=== PATIENT | female | born 2000 | race Caucasian/White ===

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

== ENCOUNTER 2024-03-26 19:17 | Emergency (ER) | payer BC, OTHER ==
[~2024-03-26] VITALS: Ht 157.5 cm; Wt 56.7 kg
[2024-03-26] MEDS ORDERED: AMOX-430 PO (20:58)
[2024-03-26] MEDS ORDERED: FLUT16SP16 BNOSTRILS (20:58)
[2024-03-26] MEDS ORDERED: BENZ-13 PO (20:59)
[2024-03-26 21:06] VITALS: TEMP 97.8
[2024-03-26 21:34] LABS: BASOPHILS % (AUTO) 0.5 % (0.0-2.0); EOSINOPHILS # (AUTO) 0.1 K/uL (0.0-0.7); HEMATOCRIT 42 % (33-45); HEMOGLOBIN 14.2 g/dL (11.5-14.8); LYMPHOCYTES # (AUTO) 1.7 K/uL (0.8-4.8); LYMPHOCYTES % (AUTO) 34.5 % (20.0-44.0); MEAN CORPUSCULAR HEMOGLOBIN 29 PG (26.0-33.0); MEAN CORPUSCULAR HGB CONC 34 g/dl (31.0-36.0); MEAN CORPUSCULAR VOLUME 87 fL (82-100); MONOCYTES # (AUTO) 0.7 K/uL (0.1-1.30); MONOCYTES % (AUTO) 13.3 % (2.0-12.0); NEUTROPHILS # (AUTO) 2.4 K/uL (1.8-8.9); NEUTROPHILS % (AUTO) 48.7 % (43.0-81.0); PLATELET COUNT (AUTO) 301 K/uL (150-450); RED BLOOD CELL COUNT(AUTO) 4.84 MIL/uL (4.0-5.2); RED CELL DISTRIBUTION WIDTH 13.3 % (11.5-15.0); WHITE BLOOD COUNT (AUTO) 4.9 K/uL (4.3-11.0)
[2024-03-26 21:52] LABS: CREATININE 0.7 mg/dL (0.6-1.3); POTASSIUM 4.3 mmol/L (3.5-5.1)
[2024-03-26 21:54] LABS: D-DIMER < 0.19 mg/L(FEU (0.17-0.50); INR 1.07 (0.91-1.10); PARTIAL THROMBOPLASTIN TIME 28.7 SEC (24.3-34.3); PROTHROMBIN TIME 11.3 SECS (9.2-11.1)
[2024-03-26] MEDS ORDERED: KETOROLAC TROMETHAMINE INJ 30 MG/ML VIAL ONE (21:58)
[2024-03-26] MEDS ORDERED: ACETAMINOPHEN 325 MG TABLET ONE (21:58)
[2024-03-26] MEDS: KETOROLAC TROMETHAMINE INJ 30 MG/ML VIAL IM ONE (22:04)
[2024-03-26] MEDS: ACETAMINOPHEN 325 MG TABLET PO ONE (22:05)
[2024-03-27 01:15] VITALS: BP 143/79; O2SAT 98
== END 2024-03-26 23:00 | disposition home or self-care (01) ==
LOC: ER 19:27
DX: R04.2 Hemoptysis (principal); J01.90 Acute sinusitis, unspecified; R05.9 Cough, unspecified; F17.200 Nicotine dependence, unspecified, uncomplicated; U07.1 COVID-19; Z88.2 Allergy status to sulfonamides; Z88.8 Allergy status to other drugs, medicaments and biological substances
CPT/HCPCS: 36415; 71045-TC; 80048-TC; 85025-TC; 85378-TC; 85610-TC; 85730-TC; J1885